=== PATIENT | female | born 2000 | race Caucasian/White ===

== ENCOUNTER 2022-04-13 14:08 | Emergency (ER) | payer SELFPAY ==
[~2022-04-13] VITALS: Ht 165.1 cm; Wt 86.2 kg
--- NOTE | 2022-04-13 14:30 | NUR ---
PT SEEN AND EVALUATED BY DR BUCKLEY.
[2022-04-13] MEDS ORDERED: TDAP DIPH,PERTUSS,TET VAC/PF 0.5 ML DISP.SYRIN IM ONE ×2 (14:45→15:12)
[2022-04-13] MEDS ORDERED: NEOMY/BACITRA/POLYMYXIN B OINT UD PACKET TP ONE ×2 (14:45→15:13)
[2022-04-13] MEDS ORDERED: IBUPROFEN 800 MG TABLET PO ONE (14:45)
[2022-04-13] MEDS ORDERED: IBUPROFEN 800 MG TABLET ONE (15:13)
[2022-04-13 15:40] VITALS: BP 131/74
--- NOTE | 2022-04-13 15:40 | NUR ---
PT WAS D/C'd TO HOME. D/C INSTRUCTIONS GIVEN TO THE PT BY DR BUCKLEY.
== END 2022-04-13 16:09 | disposition home or self-care (01) ==
LOC: ER 14:08
DX: S80.812A Abrasion, left lower leg, initial encounter (principal); S80.12XA Contusion of left lower leg, initial encounter; W01.0XXA Fall on same level from slipping, tripping and stumbling without subsequent striking against object, initial encounter; Y92.480 Sidewalk as the place of occurrence of the external cause
CPT/HCPCS: 73590; 90715; A4663